=== PATIENT | male | born 2000 | race Caucasian/White ===

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

== ENCOUNTER 2021-04-15 08:51 | Emergency (ER) | payer MEDICAID, OTHER ==
[2021-04-15 10:44] LABS: Bilirubin Negative (Negative); Blood, Urine Large (Negative); Glucose, Urine (Dipstick) Negative (Negative); Ketone, Urine Negative (Negative); Leukocyte Large (Negative); Nitrite Positive (Negative); Protein, Urine (Dipstick) 100 mg/dL (Neg-Trace); Specific Gravity, Urine 1.015 (1.005-1.030); Urobilinogen 0.2 mg/dL (Less than 2); pH, Urine 8.5 (5.0-9.0)
[2021-04-15 10:45] LABS: Clarity Cloudy (Clear)
[2021-04-15 10:53] LABS: Bacteria/HPF 3+ HPF (None Seen); RBC/HPF Greater than 50 HPF (0-3); Squamous Epithelial 0-3 HPF (0-3); Triple Phosphate Crystal 3+ HPF (None Seen); WBC/HPF Greater Than 50 HPF (0-3)
== END 2021-04-15 11:10 | disposition home or self-care (01) ==
LOC: MADERS 08:51
DX: T83.198A Other mechanical complication of other urinary devices and implants, initial encounter (principal); N30.90 Cystitis, unspecified without hematuria
CPT/HCPCS: 51702; 81003; 81015; 87077; 87086; 87186

== ENCOUNTER 2022-03-20 19:35 | Emergency (ER) | payer MEDICAID, OTHER | END 2022-03-20 20:55 | disposition short-term general hospital (02) | LOC: MADERS 19:35 | DX: T83.028A Displacement of other urinary catheter, initial encounter (principal) ==

== ENCOUNTER 2024-08-28 21:22 | Emergency (ER) | payer OTHER ==
[2024-08-28] MEDS ORDERED: Fluconazole 100 MG TAB ONE (21:47)
[2024-08-28] MEDS ORDERED: HYDROcodone/Acetaminophen 5/325 mg Tablet ONE (21:47)
[2024-08-28] MEDS ORDERED: Amoxicillin/Potassium Clav 875 MG TAB ONE (21:48)
== END 2024-08-28 21:57 | disposition home or self-care (01) ==
LOC: MADERS 21:22
DX: R21 Rash and other nonspecific skin eruption (principal)
CPT/HCPCS: 99282